=== PATIENT | female | born 1960 | race Caucasian/White ===

== ENCOUNTER 2021-07-24 14:10 | Outpatient (CLI) | payer BC, SELFPAY ==
--- NOTE | ~2021-07-24 | XR_ITS ---
EXAMINATION: XR lumbar spine 2-3V DATE: 07/24/2021 14:27 INDICATION: Low back pain TECHNIQUE: Anteroposterior and lateral views of the lumbar spine, and cone-down lateral view of the l umbosacral junction were obtained. COMPARISON: None. FINDINGS: There is no fracture, dislocation, or subluxation. The vertebral body heights and alignment are normal. There is mild loss of intervertebral disc space height at L3-4 and L5-S1. Moderate facet osteoarthritis is noted in the lower lumbar spine. A neurostimulator device is implanted in the post erior subcutaneous tissues on the right. Its leads end of the central spinal canal at the level of th e T11 vertebral body. The bowel gas pattern is normal. Small degenerative osteophytes project from th e anterior endplates of multiple vertebral bodies. IMPRESSION: 1. Mild lumbar spondylosis without acute findings. Reviewed, dictated and finalized at location F. TROCARDIOGRAPHIC TECHNICIAN
== END 2021-07-24 14:11 | disposition home or self-care (01) ==
LOC: ANHIMG 14:15
PROVIDERS: PCP Family Medicine; Visit Provider Physician Assistant Medical
DX: M54.50 Low back pain, unspecified (principal); M47.816 Spondylosis without myelopathy or radiculopathy, lumbar region
CPT/HCPCS: 72100

== ENCOUNTER 2024-12-03 11:06 | Outpatient (CLI) | payer BC, SELFPAY ==
--- NOTE | ~2024-12-03 | US_ITS ---
BILATERAL LOWER EXTREMITY VENOUS ULTRASOUND Ordering provider: Jhoan Alanis NP History: . rule out DVT in left leg . Comparison: None. FINDINGS: RIGHT LOWER EXTREMITY VEINS: --COMMON FEMORAL: Patent and free of thrombus. Normal compressibility, phasic flow and augmentation. --PROXIMAL SUPERFICIAL FEMORAL: Patent and free of thrombus. Normal compressibility, phasic flow and augmentation. --DISTAL SUPERFICIAL FEMORAL: Patent and free of thrombus. Normal compressibility, phasic flow and au gmentation. --POPLITEAL: Patent and free of thrombus. Normal compressibility, phasic flow and augmentation. --POSTERIOR TIBIAL: Patent and free of thrombus. Normal compressibility, phasic flow and augmentation . LEFT LOWER EXTREMITY VEINS: --COMMON FEMORAL: Patent and free of thrombus. Normal compressibility, phasic flow and augmentation. --PROXIMAL SUPERFICIAL FEMORAL: Patent and free of thrombus. Normal compressibility, phasic flow and augmentation. --DISTAL SUPERFICIAL FEMORAL: Patent and free of thrombus. Normal compressibility, phasic flow and au gmentation. --POPLITEAL: Patent and free of thrombus. Normal compressibility, phasic flow and augmentation. --POSTERIOR TIBIAL: Patent and free of thrombus. Normal compressibility, phasic flow and augmentation . IMPRESSION: Negative bilateral lower extremity venous US. No deep vein thrombosis. Reviewed, dictated and finalized at location A.
--- NOTE | ~2024-12-03 | XR_ITS ---
Left foot Technique: AP, oblique, and lateral views were obtained. Clinical History: Other specified soft tissue disorder Findings: No acute fracture or dislocation is seen. Osseous alignment is anatomic. There soft tissue mineralizations about the distal aspect of the first metatarsal head/hallux sesamoids. Joint spaces o verall appear preserved. Soft tissues are unremarkable. Impression: Nonspecific soft tissue calcifications versus ossifications about the hallux sesamoids and first meta tarsal head. Clinical correlation required. Reviewed, dictated and finalized at location . Impression: Nonspecific soft tissue calcifications versus ossifications about the hallux se samoids and first metatarsal head. Clinical correlation required.
--- OUTSIDE RECORDS SUMMARY | 2024-12-03 11:11 | XMS_ITS | Clinical Summary ---
Author Organization [facility] Address [address] [place] [address] Care Team Providers Care Client Relation Specialist Name Role Phone Odette Fraire RN [facility] Elia Springer MD Primary Care Provider [phone] Allergies Active Allergy Reactions Criticality Noted Date Comments Methocarbamol Rash Medium 08/26/2017 Naltrexone-Bupropion Rash Medium 12/09/2018 Penicillin Rash Medium Sulfa (Sulfonamide Antibiotics) Rash Medium 04/16 Medications atenolol (TENORMIN) 50 mg tabletIndication s:hypertension Take 50 mg by mouth every morning Active medical cannabis each 1 Dose as needed 0.5 mg PRN Active baclofen (LIORESAL) 10 mg tabletIndication s:Small fiber polyneuropathy,O ther chronic pain,Pain in both lower extremities Take 1 tablet (10 mg total) by mouth 3 (three) times a day 90 tablet 11 05/18/2021 Active ezetimibe (ZETIA) 10 mg tablet Take 10 mg by mouth daily Active cloNIDine (CATAPRES-TTS) 0.1 mg/[address] 0.1 mg on the skin once a week 12 patch 3 09/19/2022 Active PARoxetine CR (PAXIL-CR) 25 mg 24 hr tablet Take 1 tablet (25 mg total) by mouth every morning 90 tablet 3 09/19/2022 Active Active Problems Problem Noted Date Diagnosed Date Spinal cord stimulator status 07/27/2019 NSTEMI (non-ST elevated myocardial infarction) 0 12/31/2018 Other chronic pain 01/17/2018 Small fiber neuropathy (CMS/HCC) - Bilateral 12/2017 Pain of lower extremity 01/17/2018 Small fiber polyneuropathy 11/25/2017 Spinal stenosis of cervical region 05/23/2017 Arthritis 04/18/2017 Fatigue 04/18/2017 Lumbar radiculopathy 04/18/2017 Disorder of peripheral nervous system 09/24/2016 Cervical disc disorder with myelopathy 6 Mixed hyperlipidemia 05/14/2016 Essential hypertension 05/14/2016 Spondylolysis 05/14/2016 Encounter for preventive health examination 04/15 Immunizations Immunization Administration Dates Next Due Influenza, Quadrivalent, Split, Intramuscular ,04/25/2018 Influenza, Split 07/09/2013 Influenza, Trivalent, IM (MDV) 04/23/2018,2014 Influenza, Trivalent, Preservative Free, Intramu scular 05/07/2017,04/19/2016 Influenza, Unspecified 04/14/2016 Surgical History Surgery Date Site/Laterality Comments RI DELIVERY ONLY Section - (Added by TW Conv) RI TOTAL ABDOMINAL HYSTERECT W/WO RMVL TUBE OVARY Hysterectomy - (Added by TW Conv) NECK SURGERY Neck Surgery - (Added by TW Conv) RI INJ CERV/THORAC,W/WO CNTRST Corticosteroid Injection Interlaminar Approach Cervical - (Added by TW Conv) CARDIAC CATHETERIZATION 12/13/2018 - 01/11/2019 NECK SURGERY 07/15/2015 - 07/14/2016 HYSTERECTOMY 07/15/2003 - 07/14/2004 COLONOSCOPY ANTERIOR CERVICAL DISCECTOMY W/ FUSION 06/14/2016 - 07/14/2016 OTHER SURGICAL HISTORY 01/22/2019 TRIAL percutaneous placement of spinal cord stimulator electrode array x 2 leads SPINAL CORD STIMULATOR IMPLANT SECTION Medical History Medical History Date Comments Arthritis Leg pain Foot pain Chronic pain Hypertension Lumbar radiculopathy Hypothyroidism Hypothyroid History of cardiac catheterization [place] (myocardial infarction) [facility]) 12/2018 PONV (postoperative nausea and vomiting) Family History Medical History Relation Name Comments Coronary artery disease Brother 1 CABG x3 Hypertension Brother 1 Family history of hypertension - (Added by TW Conv) Hyperlipidemia Brother 2 Family histor y of hyperlipidemia - (Added by TW Conv) Hyperlipidemia Father Family histor y of hyperlipidemia - (Added by TW Conv) Hypertension Father Family history of hypertension - (Added by TW Conv) Hypertension Other Family history of hypertension - (Added by TW Conv) Anesthesia problems Neg Hx Breast cancer Neg Hx Colon cancer Neg Hx Ovarian cancer Neg Hx Pancreatic cancer Neg Hx Prostate cancer Neg Hx Uterine cancer Neg Hx Relation Name Status Comments Brother 1 Brother 2 Father Other Social History Tobacco Use Types Packs/Day Years Used Date Smoking Tobacco: Never Smokeless Tobacco: Never Tobacco Cessation:Counseling Given: Not Answered Alcohol Use Standard Drinks/Week Comments Yes 0 (1 standard drink = 0.6 oz pur e alcohol) less than 1 drink per month AUDIT-C Answer Date Recorded Frequency of Alcohol Consumption Not on file 01/23/2021 Average Number of Drinks Not on file 021 Q3: How often do you have si x or more drinks on one occasion? Never 01/23/2021 Comments No Sex and Gender Information Value Date Recorded Sex Assigned at Not on file Legal Sex Female 8:34 AM SQL DATABASE PROGRAMMER Gender Identity Female 09/02/2020 2:21 PM SQL DATABASE PROGRAMMER Sexual Orientation Straight 09/02/2020 2: 21 PM SQL DATABASE PROGRAMMER Obstetrics History Para Term AB IAB SAB Ectopic Multiple Livin g Live Births 1 1 1 1 Date Outcome GA Total Labor Labor/2nd/3rd Weight Sex Type Anes PTL Misti A1 A5 Name Clin Term Last Filed Vital Signs Vital Sign Reading Time Taken Comments Blood Pressure 136/70 04/30/2022 3:54 PM CDT Pulse 57 01/23/2021 2:35 PM CDT Temperature 36.6 C (97.8 F) 01/23/2021 2:35 PM CDT Respiratory Rate 18 01/23/2021 2:35 PM CDT Oxygen Saturation 97% 01/23/2021 2:35 PM CDT Inhaled Oxygen Concentration - - Weight 71.4 kg (157 lb 6.4 oz) 04/30/2022 3:54 P M CDT Height 165.1 cm (5' 5 ) 04/30/2022 3:54 PM CDT Body Mass Index 26.19 04/30/2022 3:54 PM CDT Plan of Treatment Health Maintenance Due Date Last Done Comments Colon Cancer Screening-Colonoscopy 1960 Depression Screening 1960 Hepatitis C Screening 1960 DTaP/Tdap/Td Vaccine (1 - Tdap) 1971 Hepatitis B Screening 1978 Zoster Vaccine (1 of 2) 2010 Regular Well Visit/Exam 18-64 04/30/2023 04/30/2022 Breast Cancer Screening-Mammogram 09/21/2023 09/20/2022, 10/09/2021, 09/28/2020, Additional history exists Covid-19 Vaccine ( season) 2024 09/07/2020, 08/10/2020 Influenza Vaccine (Season Ended) 2025 04/28/2019, 04/25/2018, 04/23/2018, Additional history exists Pneumococcal vaccine <65 Aged Out No longer eligible based on patient's age to complete this topic Goals Goal Patient Goal Type Associated Problems Recent Progress Patient-Stated? Author CCM Chronic Pain Care Plan Chronic Care Management Worsening( 2:38 PM CDT) Glenis Laguerre, RN Note: Problem: Chronic Pain Goals: 1. Minimize further functional decline 2. Maximize quality of life 3. Control pain Strategies: - Activity/exercise program recommendation - Conservative stepwise pain medicine strategy with multi-disciplinary approach - Recommend healthy lifestyle strategies and compensatory methods as needed Medical Devices Implanted Type Area Touch Up Worker Device Identifier Shelf Expiration Date Model / Serial / Lot Bone Bone Neck Description:Cadaver bone and spacer implanted in neck 5 years ago [employer] [id number]-4116 Precision Spectra 213cm 1x16 Splitter Extension Cable - [id number] Implanted:Qty: 1 on 01/22/2019 by Renetta Fernando MD at [facility] Advanced Medicine [employer]anna SC-4116 / / Metabol[employer] Yanna Sc-4116 Precision Spectra 213cm 1x16 Splitter Extension Cable - [id number] Implanted:Qty: 1 on 01/22/2019 by Renetta Fernando MD at [facility] [employer] SC-4116 / / Metabolon Neuro- Sc-2316-50e Precision Infinion 50cm 1x16 Splitter Trial Lead Kit - [id number] Implanted:Qty: 1 on 01/22/2019 by Renetta Fernando MD at [facility] Advanced [facility] Metabolon Neuro- SC-2316-5 0E / / [employer] Neuro- Hi-2316-50e Precision Infinion 50cm 1x16 Splitter Trial Lead Kit - [id number] Implanted:Qty: 1 on 01/22/2019 by Renetta Fernando MD at [facility] Advanced [facility] [employer] Neuro- ND-2316-5 0E / / [employer] Yanna Hi-2218-50 Precision 50cm Linear Straight Tip Preloaded Enhanced Stylet - [id number] - [id number] Implanted:Qty: 1 on 07/13/2019 by Renetta Fernando MD at [facility] N/A: Spine Thoracic [employer] Yanna 06/06/2021 ND-2218-5 0 / [id number] / [employer] Yanna Hi-2218-50 Precision 50cm Linear Straight Tip Preloaded Enhanced Stylet - [id number] - [id number] Implanted:Qty: 1 on 07/13/2019 by Renetta Fernando MD at [facility] N/A: Spine Thoracic [employer] Yanna 01/27/2021 [id number] 0 / [id number] / Generator Implantable Pulse Wavewriter Ipg - [id number] - [id number] Implanted:Qty: 1 on 07/13/2019 by Renetta Fernando MD at [facility] N/A: Flank [employer] Yanna 03/25/2021 [id number] / [id number] / [employer] Sc-4318 Clik X Bolivar Lead Spinal Cord Stimulation Systems - [id number] Implanted:Qty: 1 on 07/13/2019 by Renetta Fernando MD at [facility] N/A: Flank [employer] Yanna 06/04/2021 [id number]-4318 / / [id number] Procedures Procedure Name Priority Date/Time Associated Diagnosis Comments SCREENING MAMMOGRAM BILATERAL W DAREN Schedule Routine, Read Routine (OP Routine) 09/20/2022 3:30 PM SQL DATABASE PROGRAMMER Encounter for screening mammogram for malignant neoplasm of breast from Last 3 Months or Most Recently Relevant to Health Maintenance Results * Screening Mammogram Bilateral W Daren (09/20/2022 3:30 PM SQL DATABASE PROGRAMMER) Anatomical Region Laterality Modality Breast Bilateral Mammography Impressions 09/20/2022 3:43 PM SQL DATABASE PROGRAMMER BI-RADS ATLAS category (overall): 2 - Benign There is no mammographic evidence of malignancy. A 1 year screening mammogram is recommended. The patient has been or will be contacted. We recommend annual screening mammography for women at average risk of breast cancer beginning at age 40, based on guidelines of the [employer] (ACR Practice Parameter for the Performance of Screening and Diagnostic Mammography) and [employer]. For women with and elevated risk of breast cancer, please refer to the ACR Practice Parameter for specific screening recommendations. The patient will be entered into a reminder system with a target due date of 1 year for her next screening exam. Narrative 09/20/2022 3:43 PM SQL DATABASE PROGRAMMER Screening Mammogram Bilateral W Daren: 09/20/22 The study was acquired using full field digital technology and interpreted from soft copy. 2D digital mammographic views, as well as 3D digital tomosynthesis were performed in the CC and MLO projections. CLINICAL: Encounter for screening mammogram for malignant neoplasm of breast. No relevant medical history has been documented for this patient. History of breast cancer in Neg Hx. COMPARISONS: 10/09/2021 Diagnostic Mammogram Bilateral W Daren 10/09/2021 US Breast Left Limited 04/03/2021 Diagnostic Mammogram Left W Daren 04/03/2021 US Breast Left Limited 09/28/2020 US Breast Left Limited 09/28/2020 Diagnostic Mammogram Bilateral W Daren 03/31/2020 US Breast Left Limited 03/31/2020 Diagnostic Mammogram Left W Daren 09/25/2019 US Breast Left Limited 09/25/2019 Diagnostic Mammogram Left W Daren 09/09/2019 Screening Mammogram 2D Bilateral 02/13/2018 Screening Mammogram 2D Bilateral BREAST TISSUE: The breasts have scattered areas of fibroglandular density. FINDINGS: There are benign calcifications in both breasts. There is also an unchanged benign mass in the upper outer left breast, qcd-bf-[id number] depth. No suspicious masses, suspicious calcifications, or other suspicious findings are seen within either breast. There has been no suspicious change. us Cathi Richardson MD IMG MAMMO PROCEDURES Final Res ult from Last 3 Months or Most Recently Relevant to Health Maintenance Insurance [facility] [place] [address] [place] [address] [facility] CARE OTHER [facility] [place] [address] [place] [address] [employer] [place] [place] [facility] [place] [address] [place] Care Teams Client Relation Specialist Relationship Specialty Start Date End Date Elia Zavala MD PCP - General Family Medicine 05/04/22 Odette Fraire, RN Registered Nurse 06/22/19
--- OUTSIDE RECORDS SUMMARY | 2024-12-03 11:11 | XMS_ITS | Encounter Summary ---
Author Organization [facility] Healthcare Address [address] [place] [address] Care Team Providers Care Client Services Account Manager Name Role Phone Elia Zavala MD Primary Care Provider + [phone] Odette Fraire RN [facility] Claire Naidu MD Primary Care Provider + [phone] Elia Zavala MD Primary Care Provider + [phone] Encounter Details Date Type Department Care Team (Late st Contact Info) Description 05/28/2018 Telephone [facility] [address] [facility] Advanced Medicine [address] [place], [place] [id number] Renetta Fernando MD [address] [facility] [address] [facility] [id number] [place], [place] [id number] Social History Tobacco Use Types Packs/Day Years Used Date Smoking Tobacco: Never Smokeless Tobacco: Never Comments No Sex and Gender Information Value Date Recorded Sex Assigned at Not on file Legal Sex Female 8:34 AM DOOR TENDER Gender Identity Female 09/02/2020 2:21 PM DOOR TENDER Sexual Orientation Straight 09/02/2020 2: 21 PM DOOR TENDER documented as of this encounter Plan of Treatment Not on file documented as of this encounter Visit Diagnoses Not on filedocumented in this encounter Care Teams Client Services Account Manager Relationship Specialty Start Date End Date Elia Zavala MD PCP - General 09/24/16 03/30/20 Claire Fletcher MD [address] [facility] [address] [place] [address] PCP - General 03/31/20 05/03/22 Elia Zavala MD PCP - General Family Medicine 05/04/22 Odette Fraire RN Registered Nurse 06/22/19 documented as of this encounter
--- OUTSIDE RECORDS SUMMARY | 2024-12-03 11:11 | XMS_ITS | Referral Summary ---
Author Organization [facility] Address [address] [place] [address] Care Team Providers Care Information Systems Administrator Name Role Phone Odette Fraire RN [facility] Elia Springer MD Primary Care Provider [phone] Allergies Active Allergy Reactions Criticality Noted Date [...] Free, Intramu scular 05/07/2017,04/19/2016 Influenza, Unspecified 04/14/2016 Social History Tobacco Use Types Packs/Day Years [...] on file Legal Sex Female 8:34 AM TELEGRAPHER AGENT Gender Identity Female 09/02/2020 2:21 PM TELEGRAPHER AGENT Sexual Orientation Straight 09/02/2020 2: 21 PM TELEGRAPHER AGENT Last Filed Vital Signs Vital Sign Reading [...] 04/30/2022 3:54 PM CDT Plan of Treatment Not on file Goals Goal Patient Goal Type Associated Problems Recent Progress Patient-Stated? Author CCM Chronic Pain Care Plan Chronic Care Management Worsening( 2:38 PM CDT) Glenis Laguerre, DAMON Note: Problem: Chronic Pain Goals: 1. Minimize further functional decline 2. Maximize quality of life 3. Control pain Strategies: - Activity/exercise program recommendation - Conservative stepwise pain medicine strategy with multi-disciplinary approach - Recommend healthy lifestyle strategies and compensatory methods as needed Medical Devices Implanted Type Area Asphalt Tile Floor Layer Device Identifier Shelf Expiration Date Model / Serial / Lot Bone Bone Neck Description:Cadaver bone and spacer implanted in neck 5 years ago [employer] Sc-4116 Precision Spectra 213cm 1x16 Splitter Extension Cable - [id number] Implanted:Qty: 1 on 01/22/2019 by Renetta Fernando MD at [facility] Medicine [employer] Yanna SC-4116 / / [employer]anna Sc-4116 Precision Spectra 213cm 1x16 Splitter Extension Cable - [id number] Implanted:Qty: 1 on 01/22/2019 by Renetta Fernando MD at [facility] [employer] Yanna SC-4116 / / [employer] Neuro- Sc-2316-50e Precision Infinion 50cm 1x16 Splitter Trial Lead Kit - [id number] Implanted:Qty: 1 on 01/22/2019 by Renetta Fernando MD at [facility] Advanced Medicine [employer] Neuro- SC-2316-5 0E / / [employer] Neuro- Sc-2316-50e Precision Infinion 50cm 1x16 Splitter Trial Lead Kit - [id number] Implanted:Qty: 1 on 01/22/2019 by eRnetta Fernando MD at [facility] Medicine [employer] Neuro- SC-2316-5 0E / / [employer] Sc-2218-50 Precision 50cm Linear Straight Tip Preloaded Enhanced Stylet - [id number] - [id number] Implanted:Qty: 1 on 07/13/2019 by Renetta Fernando MD at [facility] Advanced [facility] N/A: Spine Thoracic [employer] Yanna 06/06/2021 [id number] 0 / [id number] / [employer] Yanna Az-2218-50 Precision 50cm Linear Straight Tip Preloaded Enhanced Stylet - [id number] - [id number] Implanted:Qty: 1 on 07/13/2019 by Renetta Fernando MD at [facility] N/A: Spine Thoracic [employer] Yanna 01/27/2021 [id number] 0 / [id number] / Generator Implantable Pulse Wavewriter Ipg - [id number] - [id number] Implanted:Qty: 1 on 07/13/2019 by Renetta Fernando MD at [facility] N/A: Flank [employer] Yanna 03/25/2021 [id number] / [id number] / [employer] Az-4318 [employer] [place] Lead Spinal Cord Stimulation Systems - [id number] Implanted:Qty: 1 on 07/13/2019 by Renetta Fernando MD at [facility] N/A: Flank [employer] Yanna 06/04/2021 [id number] / / [id number] Procedures Procedure Name Priority Date/Time Associated Diagnosis Comments SCREENING MAMMOGRAM BILATERAL W DAREN Schedule Routine, Read Routine (OP Routine) 09/20/2022 3:30 PM TELEGRAPHER AGENT Encounter for screening mammogram for malignant neoplasm of breast from Last 3 Months or Most Recently Relevant to Health Maintenance Results * Screening Mammogram Bilateral W Daren (09/20/2022 3:30 PM TELEGRAPHER AGENT) Anatomical Region Laterality Modality Breast Bilateral Mammography Impressions 09/20/2022 3:43 PM TELEGRAPHER AGENT BI-RADS ATLAS category (overall): 2 - Benign There is no mammographic evidence of malignancy. A 1 year screening mammogram is recommended. The patient has been or will be contacted. We recommend annual screening mammography for women at average risk of breast cancer beginning at age 40, based on guidelines of the [employer] (ACR Practice Parameter for the Performance of Screening and Diagnostic Mammography) and [employer] Gynec[employer]. For women with and elevated risk of breast cancer, please refer to the ACR Practice Parameter for specific screening recommendations. The patient will be entered into a reminder system with a target due date of 1 year for her next screening exam. Narrative 09/20/2022 3:43 PM TELEGRAPHER AGENT Screening Mammogram Bilateral W Daren: 09/20/22 The [...] mass in the upper outer left breast, znf-my-vpdjuchul depth. No suspicious masses, suspicious calcifications, or other suspicious findings are seen within either breast. There has been no suspicious change. us Cathi Richardson MD IMG MAMMO PROCEDURES Final Res ult from Last 3 Months or Most Recently Relevant to Health Maintenance Insurance [facility] CARE OTHER [facility] Member Subscriber Plan / Payer (Ef fective 2018-Present) Name:Leigh Bueno Relation to Subscriber:Self Name:KRZYSZTOF BUENO Payer ID:[id number] ([facility]) Type:MANAGED CARE OTHER Address: [address] [employer] [place] [facility] [employer] [place] Member Subscriber Plan / Payer ( fective 2018-Present) Name:Leigh Bueno J Relation to Subscriber:Self Name:Leigh Bueno Payer ID:[id number] ([employer]) Type:ExecNote OTHER Address: [address] [place] [phone] [facility] Care Teams Information Systems Administrator Relationship Specialty Start Date End Date Elia Zavala MD PCP - General Family Medicine 05/04/22 Odette Fraire, RN Registered Nurse 06/22/19
--- OUTSIDE RECORDS SUMMARY | 2024-12-03 11:11 | XMS_ITS | Encounter Summary ---
Author Organization [facility] Healthcare Address [address] [place] [address] Care Team Providers Care Power Driven Brush Maker Name Role Phone Elia Zavala MD Primary Care Provider + [phone] [facility] Claire Naidu MD Primary Care Provider + [phone] Elia Zavala MD Primary Care Provider + [phone] Encounter Details Date Type Department Care Team (Late st Contact Info) Description 07/28/2018 Telephone [facility] [address] [facility] Advanced Medicine [address] [place], [place] [phone] Renetta Fernando MD [address] [facility] [address] [facility] [phone] [place], [place] [phone] Social History Tobacco Use Types Packs/Day Years Used Date Smoking Tobacco: Never Smokeless Tobacco: Never Comments No Sex and Gender Information Value Date Recorded Sex Assigned at Not on file Legal Sex Female 8:34 AM PRINCIPAL STATISTICAL SCIENTIST Gender Identity Female 09/02/2020 2:21 PM PRINCIPAL STATISTICAL SCIENTIST Sexual Orientation Straight 09/02/2020 2: 21 PM PRINCIPAL STATISTICAL SCIENTIST documented as of this encounter Plan of Treatment Not on file documented as of this encounter Goals Goal Patient Goal Type Associated Problems Recent Progress Patient-Stated? Author CCM Chronic Pain Care Plan Chronic Care Management Worsening( 2:38 PM CDT) No Glenis Ames, DAMON Note: Problem: Chronic Pain Goals: 1. Minimize further functional decline 2. Maximize quality of life 3. Control pain Strategies: - Activity/exercise program recommendation - Conservative stepwise pain medicine strategy with multi-disciplinary approach - Recommend healthy lifestyle strategies and compensatory methods as needed documented as of this encounter Visit Diagnoses Not on filedocumented in this encounter Care Teams Power Driven Brush Maker Relationship Specialty Start Date End Date Elia Zavala MD PCP - General 09/24/16 03/30/20 Claire Fletcher MD [address] [address] PCP - General 03/31/20 05/03/22 Elia Zavala MD PCP - General Family Medicine 05/04/22 Odette Fraire RN Registered Nurse 06/22/19 documented as of this encounter
--- OUTSIDE RECORDS SUMMARY | 2024-12-03 11:11 | XMS_ITS | Encounter Summary ---
Author Organization [facility] Healthcare Address [address] [place] [address] Care Team Providers Care Environmental Services Project Manager Name Role Phone Elia Zavala MD Primary Care Provider + [phone] Odette Fraire RN [facility] Claire Naidu MD Primary Care Provider + [phone] Elia Zavala MD Primary Care Provider + [phone] Encounter Details Date Type Department Care Team (Late st Contact Info) Description 02/23/[address] [facility] [place] [facility] [address] [facility] [address] [place], [place] [phone] Renetta Fernando MD [address] [facility] [address] [facility] [phone] [place], [place] [id number] Social History Tobacco Use Types Packs/Day Years Used Date Smoking Tobacco: Never Smokeless Tobacco: Never Alcohol Use Standard Drinks/Week Comments Yes 0 (1 standard drink = 0.6 oz pur e alcohol) AUDIT-C Answer Date Recorded Frequency of Alcohol Consumption Monthly or less 01/22/2019 Average Number of Drinks Not on file 019 Frequency of Binge Drinking Not on file 01/12 Comments No Sex and Gender Information Value Date Recorded Sex Assigned at Not on file Legal Sex Female 8:34 AM HIGH SCHOOL GUIDANCE COUNSELOR Gender Identity Female 09/02/2020 2:21 PM HIGH SCHOOL GUIDANCE COUNSELOR Sexual Orientation Straight 09/02/2020 2: 21 PM HIGH SCHOOL GUIDANCE COUNSELOR documented as of this encounter Plan of [...] on filedocumented in this encounter Care Teams Environmental Services Project Manager Relationship Specialty Start Date End Date Elia Zavala MD PCP - General 09/24/16 03/30/20 Claire Fletcher MD [address] [address] PCP - General 03/31/20 05/03/22 Elia Zavala MD PCP - General Family Medicine 05/04/22 Odette Fraire RN Registered Nurse 06/22/19 documented as of this encounter
--- OUTSIDE RECORDS SUMMARY | 2024-12-03 11:11 | XMS_ITS | Encounter Summary ---
Author Organization [facility] Address [address] [facility] [place] [address] Care Team Providers Care Field Ring Assembler Name Role Phone Elia Zavala MD Primary Care Provider Reason for Referral * Consultation (Routine) - Closed Specialty Diagnoses / Procedures Referred By Contac t Referred To Contact Neurology Diagnoses Peripheral polyneuropathy Kadny Phillip MD [address] [place] [phone] Phone: tel: fax: [facility] - Neurology [address] [place] [phone] Phone: tel: fax: Referral ID Status Reason Start Date Expiration Date V isits Requested Visits Authorized [id number] Closed Specialty Services Required 06/02/2024 06/02/2025 1 1 D TYPER Encounter Details Date Type Department Care Team (Latest Contact Info) Description 06/02/2024 Transcribe Orders [facility] - Centralized Scheduling [facility] [place] [address] Kandy Phillip MD [address] [place] [phone] Peripheral polyneuropathy Social History Tobacco Use Types Packs/Day Years Used Date Smoking Tobacco: Never Assessed Comments Unknown Sex and Gender Information Value Date Recorded Sex Assigned at Female 06/19/2024 11:47 AM BLOOD TYPER Legal Sex Female 2:58 PM BLOOD TYPER Gender Identity Female 06/19/2024 11:47 AM BLOOD TYPER Sexual Orientation Not on file documented as of this encounter Plan of Treatment Upcoming Encounters Date Type Department Care Team (Late st Contact Info) Description 10/26/2025 3:30 PM CDT Office Visit [facility] - Neurology [address] [place] [address], [place] [address] Vivienne Raya MD [address] [place] [address] [place] [phone] Scheduled Referrals Name Type Priority Associated Diagnoses Orde r Schedule AMB REFERRAL TO NEUROLOGY Outpatient Referral Routine Peripheral polyneuropathy 1 Occurrences starting 06/02/2024 until 06/02/2025 documented as of this encounter Visit Diagnoses Diagnosis Peripheral polyneuropathy- Primary Unspecified hereditary and idiopathic peripheral neuropathy documented in this encounter Care Teams Field Ring Assembler Relationship Specialty Start Date End Date Elia Zavala MD [address] [place] [address] PCP - General Family Medicine 06/25/24 documented as of this encounter
--- OUTSIDE RECORDS SUMMARY | 2024-12-03 11:11 | XMS_ITS | Clinical Summary ---
Author Organization [facility] [employer] [facility] Address [address] [place] [address] Care Team Providers Care Turning Machine Set Up Operator Name Role Phone Elia Zavala MD Primary Care Provider Source Comments [facility],non-owned Affiliates and Associated Physician Practices is amultiple site organization consisting of ambulatory clinics and hospital sitesin [place], [place], [place] and [place]. This disclosure is being madepursuant to the Care Everywhere program and may not contain all information available regarding this patient. Last updated 18.[facility] [employer] [facility] Allergies Active Allergy Reactions Criticality Noted Date Comments Penicillins Rash Medium 06/25/2024 Sulfacetamide Itching Medium 06/25/2024 Medications * Be aware that medications may not be up to date on this document. Alwaysverify current medications with the patient. atenolol (Tenormin) 50 MG tablet Take 1 (one) tablet by mouth once daily Active ezetimibe-simva statin (Vytorin) 10-40 MG tablet Take 1 (one) tablet by mouth at bedtime Active pregabalin (Lyrica) 150 MG capsule Take 1 (one) capsule by mouth every morning Active baclofen (Lioresal) 10 MG tablet Take 1 (one) tablet by mouth 3 times daily May cause drowsiness. Active pregabalin (Lyrica) 200 MG capsule Take 1 (one) capsule by mouth every evening 90 capsule 3 06/25/2024 Active pregabalin (Lyrica) 100 MG capsule Take 1 (one) capsule by mouth 2 times daily 60 capsule 3 09/08/2024 Active pregabalin (Lyrica) 100 MG capsule Take 1 (one) capsule by mouth 2 times daily 60 capsule 5 10/27/2024 Active Active Problems Problem Noted Date Diagnosed Date High cholesterol 10/27/2024 Cholecystitis 12/04/2023 Colic, biliary 12/04/2023 Spinal cord stimulator status 07/27/2019 NSTEMI (non-ST elevated myocardial infarction) 0 12/31/2018 Other chronic pain 01/17/2018 Pain of lower extremity 01/17/2018 Small fiber neuropathy 01/17/2018 Spinal stenosis of cervical region 05/23/2017 Arthritis 04/18/2017 Fatigue 04/18/2017 Lumbar radiculopathy 04/18/2017 Disorder of peripheral nervous system 09/24/2016 Cervical disc disorder with myelopathy 6 Essential hypertension 05/14/2016 Spondylolysis 05/14/2016 Encounter for preventive health examination 04/15 Encounters Date Type Department Care Team Description 10/27/2024 3:30 PM CDT Office Visit [facility] - Neurology [address] [place] [phone] Vivienne Raya MD Idiopathic peripheral neuropathy (Primary Dx) 10/27/2024 Travel 09/08/2024 Orders Only [facility] - Neurology [address] [place] [phone] Vivienne Raya MD from Last 3 Months Immunizations Immunization Administration Dates Next Due INFLUENZA VACCINE, TRIV. (AF LURIA, FLUZONE TRIVALENT; 6MO+) (IIV3) 04/23/2018,03/27/2015 FLU VACCINE QUAD IIV4 SPLIT 0.25 ML IM 9,04/25/2018 FLU VACCINE TRI IIV3 SPLIT PF IM (FLUVIRIN) 04/15,04/19/2016 INFLUENZA VACCINE 04/14/2016 INFLUENZA VACCINE, QUADR. (A FLURIA, FLUZONE QUADRIVALENT; 6MO+) (IIV4) 07/09/2013 Social History Tobacco Use Types Packs/Day Years Used Date Smoking Tobacco: Never Assessed Comments No Sex and Gender Information Value Date Recorded Sex Assigned at Female 06/19/2024 11:47 AM MACHINE TRY OUT SETTER Legal Sex Female 2:58 PM MACHINE TRY OUT SETTER Gender Identity Female 06/19/2024 11:47 AM MACHINE TRY OUT SETTER Sexual Orientation Not on file Last Filed Vital Signs Vital Sign Reading Time Taken Comments Blood Pressure 146/98 10/27/2024 3:48 PM CDT Pulse 67 10/27/2024 3:48 PM CDT Temperature - - Respiratory Rate - - Oxygen Saturation 95% 10/27/2024 3:48 PM CDT Inhaled Oxygen Concentration - - Weight 71.9 kg (158 lb 8 oz) 10/27/2024 3:48 PM CDT Height 165.1 cm (5' 5 ) 10/27/2024 3:48 PM CDT Body Mass Index 26.38 10/27/2024 3:48 PM CDT Plan of Treatment Upcoming Encounters Date Type Department Care Team (Late st Contact Info) Description 10/26/2025 3:30 PM CDT Office Visit [facility] - Neurology [address] [place] [address], [place] [phone] Vivienne Raya MD [address] [place] [phone] Health Maintenance Due Date Last Done Comments COLOGUARD (AGES 45-75) - COLON CA SCREENING [address] COLONOGRAPHY - COLON CA SCREENING 1960 FIT - COLON CA SCREENING 1960 FLEX SIG - COLON CA SCREENING 1960 PAP SMEAR 1960 HIV SCREENING 1975 HEPATITIS C SCREENING 08/11/1978 DTAP/TDAP/TD VACCINES (1 - Tdap) 1979 PNEUMOCOCCAL VACCINE 50+ (1 of 1 - PCV) 2010 ZOSTER VACCINE (1 of 2) 2010 Respiratory Syncytial Virus (RSV) Vaccine Pt: or over 60 yrs (1 - Risk 60-74 years 1-dose series) 2020 COVID-19 VACCINE ( season) 2024 09/07/2020, 08/10/2020 DEPRESSION SCREENING 07/15/2024 MAMMOGRAM 09/20/2024 09/20/2022, 03/0 03/2023, 10/09/2021, Additional history exists SCREENING FOR DIABETES 10/27/2024 INFLUENZA VACCINE (Season Ended) 2025 04/28/2019, 04/25/2018, 04/23/2018, Additional history exists COLONOSCOPY - COLON CA SCREENING 01/08/2033 01/08/2023 Colorectal Cancer Screening 01/08/2033 HEPATITIS B VACCINE Aged Out No longe r eligible based on patient's age to complete this topic HIB VACCINE Aged Out No longer eligi ble based on patient's age to complete this topic HPV VACCINE Aged Out No longer eligi ble based on patient's age to complete this topic MENINGOCOCCAL (Group B) VACCINE SHARED DECISION-MAKING Aged Out No longer eligible based on patient's age to complete this topic MENINGOCOCCAL GROUPS A/C/Y/W VACCINE Aged Out No longer eligible based on patient's age to complete this topic Insurance [facility] Care Teams Turning Machine Set Up Operator Relationship Specialty Start Date End Date Elia Zavala MD [address] [place] [address] PCP - General Family Medicine 06/25/24
--- OUTSIDE RECORDS SUMMARY | 2024-12-03 11:11 | XMS_ITS | Clinical Summary ---
Author Organization [facility] Address [address] [place] [phone] Care Team Providers Care Superintendent Electric Power Name Role Phone Unavailable Primary Care Provider Unavailabl e Social History Tobacco Use Types Packs/Day Years Used Date Smoking Tobacco: Never Assessed Comments Unknown Sex and Gender Information Value Date Recorded Sex Assigned at Not on file Legal Sex Female 9:11 AM CLINICAL AIDE Gender Identity Not on file Sexual Orientation Not on file Plan of Treatment Health Maintenance Due Date Last Done Comments Hepatitis C Virus (HCV) Screening 1960 TdaP Immunization 1960 Colonoscopy 2005 Colorectal Cancer Screening 2005 Cologuard 2010 Immunochemical Fecal Occult Blood 2010 Pneumococcal Immunization (50+ years) (1 of 1 - PCV) 2010 Zoster Immunization (1 of 2) 2010 Influenza Immunization (#1) 2024 10/0 07/2019, 04/23/2018, 05/07/2017, Additional history exists SARS-COV-2 Immunization (2023-25 season) 2024 Respiratory Syncytial Virus (RSV) Immunization (Adult) (1 - 1-dose 75+ series) 2035 Hepatitis B Immunization Aged Out No longer eligible based on patient's age to complete this topic Meningococcal Immunization (ACWY) Aged Out No longer eligible based on patient's age to complete this topic Rotavirus Immunization Aged Out No lo nger eligible based on patient's age to complete this topic Insurance [employer] on file
--- OUTSIDE RECORDS SUMMARY | 2024-12-03 11:11 | XMS_ITS | Encounter Summary ---
Author Organization [facility] Healthcare Address [address] [place] [address] Care Team Providers Care Imaging Center Manager Name Role Phone Elia Zavala MD Primary Care Provider + [phone] Odette Fraire RN [facility] Claire Naidu MD Primary Care Provider + [phone] Elia Zavala MD Primary Care Provider + [phone] Encounter Details Date Type Department Care Team (Late st Contact Info) Description 02/23/2019 Telephone [facility] at the [place] [facility] [address] [facility] Advanced [facility] [address] [place], [place] [phone] Renetta Fernando MD [address] [facility] [address] [facility] [phone] [place], [place] [phone] Social History Tobacco Use Types Packs/Day Years [...] on file Legal Sex Female 8:34 AM GENERAL EDUCATION INSTRUCTOR Gender Identity Female 09/02/2020 2:21 PM GENERAL EDUCATION INSTRUCTOR Sexual Orientation Straight 09/02/2020 2: 21 PM GENERAL EDUCATION INSTRUCTOR documented as of this encounter Plan of [...] on filedocumented in this encounter Care Teams Imaging Center Manager Relationship Specialty Start Date End Date Elia Zavala MD PCP - General 09/24/16 03/30/20 Claire Fletcher MD [address] [address] PCP - General 03/31/20 05/03/22 Elia Zavala MD PCP - General Family Medicine 05/04/22 Odette Fraire RN Registered Nurse 06/22/19 documented as of this encounter
--- OUTSIDE RECORDS SUMMARY | 2024-12-03 11:12 | XMS_ITS | Encounter Summary ---
Author Organization [facility] Healthcare Address [address] [place] [address] Care Team Providers Care Filling Station Laborer Name Role Phone Odette Fraire RN Unavailable Unavail Claire Naidu MD Primary Care Provider + [phone] Elia Zavala MD Primary Care Provider + [phone] Reason for Visit * Reason Onset Date Comments Med Refill 12/02/2020 Encounter Details Date Type Department Care Team (Late st Contact Info) Description 12/02/2020 Telephone [facility] [place] [facility] [address] [facility] Advanced Medicine [address] [place] [address] Renetta Fernando MD [address] [facility] [address] [facility] [phone] [place], [place] [phone] Med Refill Social History Tobacco Use Types Packs/Day Years [...] on file Legal Sex Female 8:34 AM MOTOR ADJUSTER Gender Identity Female 09/02/2020 2:21 PM MOTOR ADJUSTER Sexual Orientation Straight 09/02/2020 2: 21 PM MOTOR ADJUSTER documented as of this encounter Plan of Treatment Not on file documented as of this encounter Goals Goal Patient Goal Type Associated Problems Recent Progress Patient-Stated? Author CCM Chronic Pain Care Plan Chronic Care Management Worsening( 2:38 PM CDT) Glenis Laguerre RN Note: Problem: Chronic Pain Goals: 1. Minimize further functional decline 2. Maximize quality of life 3. Control pain Strategies: - Activity/exercise program recommendation - Conservative stepwise pain medicine strategy with multi-disciplinary approach - Recommend healthy lifestyle strategies and compensatory methods as needed documented as of this encounter Visit Diagnoses Not on filedocumented in this encounter Care Teams Filling Station Laborer Relationship Specialty Start Date End Date Claire Fletcher MD [address] [place] [address] PCP - General 03/31/20 05/03/22 Elia Zavala MD [address] [place] [address] PCP - General Family Medicine 05/04/22 Odette Fraire, RN Registered Nurse 06/22/19 documented as of this encounter
== END 2024-12-03 11:07 | disposition home or self-care (01) ==
PROVIDERS: PCP Family Medicine
DX: M79.89 Other specified soft tissue disorders (principal)
CPT/HCPCS: 73630; 93970